=== PATIENT | female | born 1995 | race Caucasian/White ===

== ENCOUNTER 2020-05-03 04:53 | Emergency (ER) | payer OTHER, SELFPAY ==
[2020-05-03 05:13] VITALS: BP 124/78; PULSE 60; RESP 18; TEMP 36.5; O2SAT 98; BMI 20.2
[2020-05-03 05:29] LABS: Basophils Percent Auto 0.4 % (0-2); Eosinophils Absolute Auto 0.1 X10*3/uL (0.0-0.4); Eosinophils Percent Auto 2.4 % (0-4); Hemoglobin 12.8 g/dl (12.0-16.0); Imm Gran Abs Auto 0.01 X10*3/uL (0.00-0.03); Imm Gran Pct Auto 0.2 % (0.0-0.4); Lymphocytes Absolute Auto 1.8 X10*3/uL (1.2-4.9); Lymphocytes Percent Auto 33.4 % (20-40); MANUAL DIFF FLAG NO; Mean Corpuscular HGB Conc 33.7 g/dl (31.0-35.0); Mean Corpuscular Hemoglobin 29.9 pg (27.0-33.0); Mean Corpuscular Volume 88.8 fL (80-98); Mean Platelet Volume 9.7 fL (9.4-12.3); Monocytes Absolute Auto 0.5 X10*3/uL (0.1-1.2); Monocytes Percent Auto 8.9 % (2-11); Neutrophils Percent Auto 54.7 % (45-73); Platelet Count 236 X10*3/uL (160-400); Red Blood Count 4.28 X10*6/uL (4.20-5.50); Red Cell Distribution Width 12.6 % (11.0-16.0); White Blood Count 5.4 X10*3/uL (4.8-10.8)
[2020-05-03] MEDS: ondansetron HCL 4 MG/2 ML VIAL IVPUSH (05:29)
--- NOTE | 2020-05-03 05:32 | ED.ABDPAIN ---
HPI - Abdominal Pain General Chief Complaint: Abdominal Pain Stated Complaint: vomiting Time Seen by Provider: 05/03/20 05:11 Source: patient Mode of arrival: ambulatory Limitations: no limitations History of Present Illness HPI narrative: This is a 24-year-old female without significant past medical history who presents with acute onset of abdominal pain epigastric down into the right lower quadrant associated with 4 episodes of nausea and nonbilious /nonbloody vomiting as well as is single episode of diarrhea but denies any urinary pain /burning /frequency, fevers, chills. LMP is unknown as patient has irregular periods but she states it is unlikely that she is . Related Data Previous Rx's Medication Instructions Recorded ketorolac 10 mg PO Q6H PRN 5 Days #20 tab 05/03/20 Allergies Allergy/AdvReac Type Severity Reaction Status Date / Time lorazepam [LORAZEPAM] Allergy Unknown UNK Verified 05/03/20 07:16 peanut [PEANUT] Allergy Unknown SWEELING Verified 05/03/20 07:16 OF THROAT/RASH Review of Systems Review of Systems Pertinent positives and negatives as stated in HPI 10 point review of systems is otherwise negative. Physical Exam Vital Signs: Vital Signs: Last Vital Signs Temp 98.1 F 05/03/20 07:19 Pulse 61 05/03/20 07:19 Resp 16 05/03/20 07:22 BP 106/67 05/03/20 07:19 Pulse Ox 99 05/03/20 07:19 Body Mass Index 20.2 VITAL SIGNS: Reviewed. GENERAL: Well developed, well nourished, in no acute distress. HEAD: Normocephalic/atraumatic, EYES: PERRLA, EOMI intact without pain, no nystagmus/pallor/icterus noted EARS: Ext canals without abnormality, TMs non-bulging and non-erythematous NOSE: Nares patent bilateral OROPHARYNX: no oral lesions noted, posterior pharynx clear and non-erythematous without noted tonsillar enlargement/erythema/exudates NECK: Supple, no adenopathy LUNGS: Normal breath sounds. No adventitious sounds or accessory muscle use. SpO2<98> CARDIOVASCULAR: Regular rate and rhythm without noted murmurs, no JVD or lower extremity edema. ABDOMEN: Soft, Tenderness in the right lower quadrant greater than epigastric region, non-distended with bowel sounds. No rigidity. No guarding. No palpable masses or hernias noted MUSCULOSKELETAL: No tenderness, deformities, or effusions noted on gross inspection. EXTREMITIES: No cyanosis, clubbing or edema. SKIN: Inspection of the skin reveals no rashes, ulcerations, jaundice, pallor, or petechiae. NEUROLOGIC: Alert and oriented x 4. Strength and sensation to light touch were grossly intact x 4. Course Course Course Narrative: This is a 24-year-old female with history and clinical presentation most suggestive of possible appendicitis, ectopic , less likely ovarian cyst or cholecystitis. On review of all investigations there are no acute findings except CT scan is showing trace pelvic free fluid and thought to be ovarian cyst rupture. On re-evaluation patient has good pain control and will be discharged home in stable condition with a pain medication regimen and instructions to follow-up with her primary care provider. MDM - Abdominal Pain Lab Data Result diagrams: 05/03/20 05:25 05/03/20 05:25 Labs: Lab Results 05/03/20 05/03/20 05/03/20 Range/Units 05:25 05:25 05:45 WBC 5.4 (4.8-10.8) X10*3/uL RBC 4.28 (4.20-5.50) X10*6/uL Hgb 12.8 (12.0-16.0) g/dl Hct 38.0 (37-47) % MCV 88.8 (80-98) fL MCH 29.9 (27.0-33.0) pg MCHC 33.7 (31.0-35.0) g/dl RDW 12.6 (11.0-16.0) % Plt Count 236 (160-400) X10*3/uL MPV 9.7 (9.4-12.3) fL Immature Gran % (Auto) 0.2 (0.0-0.4) % Neut % (Auto) 54.7 (45-73) % Lymph % (Auto) 33.4 (20-40) % [place] % (Auto) 8.9 (2-11) % Eos % (Auto) 2.4 (0-4) % Baso % (Auto) 0.4 (0-2) % Lymph # (Auto) 1.8 (1.2-4.9) X10*3/uL [place] # (Auto) 0.5 (0.1-1.2) X10*3/uL Eos # (Auto) 0.1 (0.0-0.4) X10*3/uL Baso # (Auto) 0.0 (0.0-0.2) X10*3/uL Abs Immat Gran (auto) 0.01 (0.00-0.03) X10*3/uL Absolute Neuts (auto) 3.0 (2.0-8.3) X10*3/uL Absolute Nucleated RBC 0.000 (0.0-0.012) X10*3/uL Nucleated RBC % (auto) 0.0 (0.0-0.2) /100WBC Sodium 138 (135-145) mmol/L Potassium 3.9 (3.3-5.1) mmol/l Chloride 105 (96-108) mmol/L Carbon Dioxide 25 (22-29) mmol/L Anion Gap 12 (12-20) BUN 12 (9-16) mg/dL Creatinine 0.78 (0.5-1.4) mg/dL Estim Creat Clear Calc 88.7 Estimated GFR > 60 Random Glucose 106 (60-115) mg/dL Calcium 8.9 (8.4-10.2) mg/dL Total Bilirubin 0.6 (0.0-1.0) mg/dL AST 17 (5-31) U/L ALT 17 (0-31) U/L Alkaline Phosphatase 65 (39-117) U/L Total Protein 7.3 (6.5-8.0) g/dL Albumin 4.6 (3.5-5.0) g/dL Beta HCG, Quant < 2 mIU/mL Coronavirus (PCR) NEGATIVE (Negative) Influenza Type A (PCR) NEGATIVE (Negative) Influenza Type B (PCR) NEGATIVE (Negative) RSV RNA Qual (PCR) NEGATIVE (Negative) Discharge Plan Discharge Clinical Impression: Ovarian cyst rupture Patient Disposition: Home, Self-Care Instructions: Ruptured Ovarian Cyst (ED) Additional Instructions: 1. Tylenol 1000 mg, orally, every 6 hours as needed for pain control. Do not exceed 4000 mg within 24 hours. 2. Increase fluid hydration especially with water. 3. follow-up with your primary care provider by calling office this morning and sitting up an appointment for re-evaluation. The patient and/or family acknowledge understanding of results (as applicable), diagnosis, treatment plan, need for follow up, and symptoms that should prompt a return to the emergency room. Prescriptions: New ketorolac 10 mg tablet 10 mg PO Q6H PRN (Reason: pain) 5 Days Qty: 20 RF: 0 Referrals: Physician,Unknown [Primary Care Provider] - 2 days ( re-evaluation for ruptured ovarian cyst) Stand Alone Forms: Work/School Release [facility] Past Medical History Source: nursing notes reviewed Social History Social History Alcohol intake: never Smoking Status: Light tobacco smoker Use of substances other than those prescribed or required for medical reasons: No Advance Directives: No
[2020-05-03] MEDS: 0.9 % Sodium Chloride 1,000 ML 999 ML IV (05:38)
[2020-05-03] MEDS: Ketorolac Tromethamine 15 MG/ML VIAL IVPUSH (05:38)
[2020-05-03 05:52] LABS: Alanine Aminotransferase 17 U/L (0-31); Albumin Level 4.6 g/dL (3.5-5.0); Alkaline Phosphatase 65 U/L (39-117); Anion Gap 12 (12-20); Aspartate Amino Transferase 17 U/L (5-31); Bilirubin Total 0.6 mg/dL (0.0-1.0); Blood Urea Nitrogen 12 mg/dL (9-16); Calcium 8.9 mg/dL (8.4-10.2); Carbon Dioxide 25 mmol/L (22-29); Chloride 105 mmol/L (96-108); Creatinine Clr Calc Pharmacy 88.7; Estimated Glomerular Filt Rate > 60; Glucose Random 106 mg/dL (60-115); Potassium 3.9 mmol/l (3.3-5.1); Sodium 138 mmol/L (135-145); Total Protein 7.3 g/dL (6.5-8.0)
--- NOTE | 2020-05-03 05:56 | CT_ITS ---
EXAMINATION: CT ABDOMEN AND PELVIS WITH CONTRAST CLINICAL INFORMATION: Right lower quadrant pain COMPARISON: None TECHNIQUE: Multidetector volumetric images were obtained from the superior aspect of the liver through the pubic symphysis following administration 85 mL of Omnipaque 350 intravenous contrast. Sagittal and coronal reformatted images were obtained on the technologist's workstation. Oral contrast: No This CT examination was performed using dose optimization techniques as appropriate, variously including the following: *Automated exposure control *Adjustment of mA and/or kV according to patient size (this includes techniques or standardized protocols for targeted exams where dose is matched to indication/reason for exam; i.e. extremities or head) *Use of iterative reconstruction technique DLP: 312 mGy-cm FINDINGS: LUNG BASES: The visualized lung bases are unremarkable. LIVER, GALLBLADDER, AND BILIARY TREE: The liver is normal in size, shape, and attenuation. Periportal edema is noted. No focal hepatic lesion or biliary ductal dilatation is present. Gallbladder appears unremarkable. PANCREAS: Unremarkable. SPLEEN: Unremarkable. ADRENAL GLANDS: Unremarkable. KIDNEYS AND URETERS: The kidneys are normal in size, shape, and attenuation. No hydronephrosis, hydroureter, or obstructing calculi seen. No perinephric stranding. BLADDER: Unremarkable. GASTROINTESTINAL TRACT: The small and large bowel are unremarkable. The appendix is unremarkable. No free air is seen. ABDOMINAL WALL: No significant hernia is appreciated. LYMPH NODES: Normal. VASCULAR: Unremarkable. PELVIC VISCERA: A peripherally enhancing hypodense lesion in the right adnexa measuring approximately 2 cm is most suggestive of a corpus luteal cyst. Trace pelvic free fluid is present. OSSEOUS STRUCTURES: Unremarkable. CT/CT abdomen pelvis w con IMPRESSION: 1. Trace pelvic free fluid. This could be physiologic or secondary to ovarian cyst rupture, as there is a suspected right corpus luteal cyst. 2. Periportal edema, which could be related to patient's hydration status. 3. Normal appendix.
[2020-05-03 05:58] LABS: HCG Quantitative < 2 mIU/mL
[2020-05-03] MEDS: iohexoL 350 MG/ML 100 ML INFUS..BTL 85 ML IV (06:26)
[2020-05-03 06:28] VITALS: BP 103/64; PULSE 77; RESP 18; TEMP 36.7; O2SAT 100
[2020-05-03 06:28] LABS: Influenza A PCR NEGATIVE (Negative); Influenza B PCR NEGATIVE (Negative); Resp Syncy Virus RNA Qual PCR NEGATIVE (Negative); SARS COV2 PCR INHOUSE NEGATIVE (Negative)
[2020-05-03 07:19] VITALS: BP 106/67; PULSE 61; RESP 16; TEMP 36.7; O2SAT 99
[2020-05-03 07:22] VITALS: RESP 16
[2020-05-03] MEDS: fentaNYL citrate/PF 100 MCG/2 ML VIAL 25 MCG IVPUSH (07:22)
[2020-05-03 08:00] LABS: Glucose Urine UA NEG (NEG); Leukocyte Esterase Urine NEG (NEG); Nitrite Urine NEG (NEG); Specific Gravity - Urine <= 1.005 (1.005-1.025); Urine Blood NEG (NEG); Urine Ketones NEG (NEG); Urine Protein NEG (NEG-TRACE)
[2020-05-03 08:03] LABS: Appearance Urine CLEAR; Color Urine YELLOW; UPreg QC Valid YES; Urine Pregnancy NEGATIVE (NEGATIVE)
[2020-05-03 08:10] VITALS: BP 113/75; PULSE 52; RESP 16; O2SAT 100
== END 2020-05-03 08:15 | disposition home or self-care (01) ==
PROVIDERS: Emergency Provider Student in an Organized Health Care Education/Training Program
DX: N83.201 Unspecified ovarian cyst, right side (principal); Z20.828 Contact with and (suspected) exposure to other viral communicable diseases
CPT/HCPCS: 0241U; 36415; 74177; 80053; 81003; 81025; 84702; 85025; 96361; 96374; 96375; 99284; J1885; J2405; J3010; Q9967

== ENCOUNTER 2020-05-03 17:14 | Emergency (ER) | payer OTHER, SELFPAY ==
[2020-05-03 17:37] VITALS: BP 102/69; PULSE 70; RESP 16; TEMP 36.8; O2SAT 98; BMI 20.1
[2020-05-03 19:57] VITALS: BP 141/87; PULSE 79; RESP 17; O2SAT 99
[2020-05-03 20:19] LABS: MANUAL DIFF FLAG NO
[2020-05-03 20:24] LABS: Basophils Percent Auto 0.3 % (0-2); Eosinophils Percent Auto 0.4 % (0-4); Hematocrit 36.7 % (37-47); Hemoglobin 12.2 g/dl (12.0-16.0); Imm Gran Abs Auto 0.03 X10*3/uL (0.00-0.03); Imm Gran Pct Auto 0.3 % (0.0-0.4); Lymphocytes Absolute Auto 2.1 X10*3/uL (1.2-4.9); Lymphocytes Percent Auto 23.9 % (20-40); Mean Corpuscular HGB Conc 33.2 g/dl (31.0-35.0); Mean Corpuscular Hemoglobin 29.8 pg (27.0-33.0); Mean Corpuscular Volume 89.7 fL (80-98); Monocytes Absolute Auto 0.5 X10*3/uL (0.1-1.2); Monocytes Percent Auto 5.7 % (2-11); Neutrophils Absolute Auto 6.2 X10*3/uL (2.0-8.3); Neutrophils Percent Auto 69.4 % (45-73); Platelet Count 260 X10*3/uL (160-400); Red Blood Count 4.09 X10*6/uL (4.20-5.50); Red Cell Distribution Width 12.4 % (11.0-16.0)
[2020-05-03 20:46] LABS: Alanine Aminotransferase 15 U/L (0-31); Albumin Level 4.5 g/dL (3.5-5.0); Alkaline Phosphatase 64 U/L (39-117); Anion Gap 15 (12-20); Aspartate Amino Transferase 15 U/L (5-31); Bilirubin Total 0.8 mg/dL (0.0-1.0); Blood Urea Nitrogen 11 mg/dL (9-16); Calcium 8.9 mg/dL (8.4-10.2); Carbon Dioxide 23 mmol/L (22-29); Chloride 108 mmol/L (96-108); Creatinine Clr Calc Pharmacy 101.3; Estimated Glomerular Filt Rate > 60; Glucose Random 82 mg/dL (60-115); Potassium 3.8 mmol/l (3.3-5.1); Sodium 142 mmol/L (135-145); Total Protein 6.9 g/dL (6.5-8.0)
--- NOTE | 2020-05-03 20:57 | ED.ABDPAIN ---
HPI - Abdominal Pain General Chief Complaint: Abdominal Pain Stated Complaint: pelvic pain Time Seen by Provider: 05/03/20 19:56 Source: patient Mode of arrival: ambulatory Limitations: no limitations History of Present Illness HPI narrative: Patient is a 24-year-old female with no significant past medical history who was seen in this emergency room very early this morning for abdominal pain, abdominal CT scan revealed a ruptured ovarian cyst. Patient was sent home with pain medication but returns tonight because she is nauseous and has been vomiting all day. Patient describes her vomitus is a brown liquid. Denies any blood in her vomitus, denies fevers. States pain is on the upper abdomen and the right side of her abdomen. Related Data Previous Rx's Medication Instructions Recorded ketorolac 10 mg PO Q6H PRN 5 Days #20 tab 05/03/20 Allergies Allergy/AdvReac Type Severity Reaction Status Date / Time lorazepam [LORAZEPAM] Allergy Unknown UNK Verified 05/03/20 07:16 peanut [PEANUT] Allergy Unknown SWEELING Verified 05/03/20 07:16 OF THROAT/RASH Review of Systems Review of Systems see HPI Physical Exam Vital Signs: Vital Signs: Last Vital Signs Temp 98.5 F 05/03/20 22:16 Pulse 65 05/03/20 22:16 Resp 18 05/03/20 22:16 BP 108/49 L 05/03/20 22:16 Pulse Ox 98 05/03/20 22:16 Body Mass Index 20.1 Const: General: cooperative, no acute distress and in distress (pt tearful she states due to abdominal pain) mild Nutritional Appearance: thin Orientation/consciousness: patient oriented x3 Limitations: no limitations HENMT: Head: Yes normal to inspection, Yes normocephalic and Yes atraumatic Ears: hearing grossly normal bilaterally General nose exam: Normal external nose present Face and sinus: Yes normal facial exam Mouth: Normal oral and palatal mucosa present Eyes: General: appearance normal, both eyes and all related structures Pupils: Equal, round and reactive pupils present Neck: Neck: Yes normal visual inspection, Yes full ROM and Yes supple Resp: Effort & Inspection: normal respiratory effort and able to speak in complete sentences Auscultation: clear to auscultation bilaterally, no crackles, no rales, no rhonchi and no wheezes Cardio: Rate: regular rate Rhythm: regular rhythm Heart sounds: normal S1 and S2 GI: Inspection: Yes normal to inspection Palpation (GI): Soft to palpation and Tenderness to palpation present (GI) in the epigastrum, in the RLQ and suprapubicly; Santacruz's sign negative Auscultation: normal bowel sounds Skin: General skin exam: no rashes or lesions noted Neuro: General: patient oriented x3 Cranial nerves: Yes Equal, round and reactive pupils present Course Course Course Narrative: Patient is a 24-year-old female with no significant past medical history who was evaluated in this emergency department very early this morning was found to have a ruptured ovarian cyst and sent home with pain medication. Patient has returned to the emergency department this evening stating her pain has worsened and she is now nauseous and vomiting brown liquid. Will repeat labs, give a GI cocktail and get a pelvic ultrasound then reassess. 9:30pm patient's labs are WNL and virtually unchanged from this morning. Spoke with the physician who evaluated the patient this morning, Dr Jones, she agreed with plan for GI cocktail, pelvic US and doppler to r/o torsion and possibly repeat CT with PO contrast. 11pm patient states she is feeling better, still a little bit of pain. Will give Toradol IV. Will PO challenge. 12am patient states she is feeling better, can tolerate p.o., will discharge home. MDM - Abdominal Pain Lab Data Result diagrams: 05/03/20 20:10 05/03/20 20:10 Labs: Lab Results 05/03/20 05/03/20 05/03/20 Range/Units 20:10 20:10 20:10 WBC 9.0 (4.8-10.8) X10*3/uL RBC 4.09 L (4.20-5.50) X10*6/uL Hgb 12.2 (12.0-16.0) g/dl Hct 36.7 L (37-47) % MCV 89.7 (80-98) fL MCH 29.8 (27.0-33.0) pg MCHC 33.2 (31.0-35.0) g/dl RDW 12.4 (11.0-16.0) % Plt Count 260 (160-400) X10*3/uL MPV 10.0 (9.4-12.3) fL Immature Gran % (Auto) 0.3 (0.0-0.4) % Neut % (Auto) 69.4 (45-73) % Lymph % (Auto) 23.9 (20-40) % [place] % (Auto) 5.7 (2-11) % Eos % (Auto) 0.4 (0-4) % Baso % (Auto) 0.3 (0-2) % Lymph # (Auto) 2.1 (1.2-4.9) X10*3/uL [place] # (Auto) 0.5 (0.1-1.2) X10*3/uL Eos # (Auto) 0.0 (0.0-0.4) X10*3/uL Baso # (Auto) 0.0 (0.0-0.2) X10*3/uL Abs Immat Gran (auto) 0.03 (0.00-0.03) X10*3/uL Absolute Neuts (auto) 6.2 (2.0-8.3) X10*3/uL Absolute Nucleated RBC 0.000 (0.0-0.012) X10*3/uL Nucleated RBC % (auto) 0.0 (0.0-0.2) /100WBC Hold Blue Top SEE NOTE Sodium 142 (135-145) mmol/L Potassium 3.8 (3.3-5.1) mmol/l Chloride 108 (96-108) mmol/L Carbon Dioxide 23 (22-29) mmol/L Anion Gap 15 (12-20) BUN 11 (9-16) mg/dL Creatinine 0.68 (0.5-1.4) mg/dL Estim Creat Clear Calc 101.3 Estimated GFR > 60 Random Glucose 82 (60-115) mg/dL Calcium 8.9 (8.4-10.2) mg/dL Magnesium 1.9 (1.6-2.6) mg/dL Total Bilirubin 0.8 (0.0-1.0) mg/dL Direct Bilirubin 0.3 (0.0-0.5) mg/dL AST 15 (5-31) U/L ALT 15 (0-31) U/L Alkaline Phosphatase 64 (39-117) U/L Total Protein 6.9 (6.5-8.0) g/dL Albumin 4.5 (3.5-5.0) g/dL Lipase 40 (8-78) U/L Imaging Data US pelvis: Attestation: I personally reviewed and interpreted this imaging study as follows: Radiologist's impression: Patient: Sarah PatelMR#: [id number] : 1995Acct:[id number] Age/Sex: 24 / FADM Date: 05/03/20 Loc: HO.ED Attending Dr: Ordering Physician: JAMES GARCIA Date of Service: 05/03/20 Procedure(s): US pelvic complete Accession Number(s): [id number] cc: JAMES GARCIA~ EXAMINATION: US PELVIS CLINICAL INFORMATION: Pelvic pain. COMPARISON: CT from today. TECHNIQUE: Ultrasound of the pelvis is performed using transabdominal transducers along with Doppler. Transvaginal imaging is not performed due to patient request. FINDINGS: Uterus: The uterus is anteverted and measures 7.4 x 2.9 x 4 cm. The double wall endometrial thickness is 0.8 mm. The uterus is smooth in contour and has normal myometrial echogenicity. No visible fibroid. Adnexa: Both ovaries are visualized. There is normal color flow to the adnexa. There is no ovarian torsion. There is no pelvic ascites or fluid collection. Corpus luteal cyst on the right measuring 1.2 cm. Right ovary measures 3.3 x 3.1 x 2.1 cm. Left ovary measures 2.9 x 3.1 x 1.8 cm. Normal arterial and venous spectral waveforms bilaterally. Small amount of free fluid in the pelvis. US/US pelvic complete IMPRESSION: No evidence of active ovarian torsion at this time. No suspicious ovarian lesion. Small amount of pelvic free fluid may be physiologic. Discharge Plan Discharge Prescriptions: No Action ketorolac 10 mg tablet 10 mg PO Q6H PRN (Reason: pain) 5 Days Qty: 20 RF: 0 PMFSH Social History Social History Alcohol intake: current Alcohol intake frequency: a few times a week Alcohol type: wine Smoking Status: Current some day smoker Smoked in Last 30 Days: No Use of substances other than those prescribed or required for medical reasons: No Advance Directives: No Advance Directives Information Provided: Yes
[2020-05-03] MEDS: ondansetron HCL 4 MG/2 ML VIAL IVPUSH (20:58)
--- NOTE | 2020-05-03 21:01 | PC.NURSE ---
Po meds held for n/v. primary rn aware
[2020-05-03 21:24] LABS: Bilirubin Direct 0.3 mg/dL (0.0-0.5); Lipase 40 U/L (8-78); Magnesium 1.9 mg/dL (1.6-2.6)
[2020-05-03] MEDS: Magnesium Hydrox/Alum Hydrox 30 ML ORAL.SUSP PO (21:53)
[2020-05-03] MEDS: Lidocaine HCl Viscous 2 % 15 ML SOLUTION 10 ML MUCOUS MEM (21:54)
[2020-05-03 22:16] VITALS: BP 108/49; PULSE 65; RESP 18; TEMP 36.9; O2SAT 98
[2020-05-03] MEDS: Ketorolac Tromethamine 15 MG/ML VIAL IV (23:41)
[2020-05-04] VITALS: PULSE 60; RESP 16; TEMP 36.7
== END 2020-05-04 00:54 | disposition home or self-care (01) ==
PROVIDERS: Physician Assistant; Emergency Provider Internal Medicine
DX: R10.2 Pelvic and perineal pain (principal); R11.10 Vomiting, unspecified; F17.200 Nicotine dependence, unspecified, uncomplicated
CPT/HCPCS: 36415; 76856; 80053; 80076; 82248; 83690; 83735; 85025; 93975; 96374; 96375; 99284; J1885; J2405

== ENCOUNTER 2021-08-03 23:35 | Emergency (ER) | payer OTHER, SELFPAY ==
--- NOTE | ~2021-08-03 | CT_ITS ---
EXAMINATION: NONCONTRAST HEAD CT NONCONTRAST FACIAL BONES CT NONCONTRAST CERVICAL SPINE CT INDICATION INFORMATION: Fall, injury COMPARISON: None TECHNIQUE: Separate noncontrast CT examinations of the head, maxillofacial bones, and cervical spine were performed. Coronal and sagittal images were created for each examination at the technologist workstation. DOSE LOWERING TECHNIQUES: This CT examination was performed using dose optimization techniques as appropriate, variously including the following: - Automated exposure control - Adjustment of mA and/or kV according to patient size (this includes techniques or standardized protocols for targeted exams were dose is matched to indication/reason for exam; i.e. extremities or head) - Use of iterative reconstruction technique DLP: 1108 mGy-cm FINDINGS: Head: There is no evidence of acute intracranial hemorrhage or territorial infarction. No abnormal mass-effect or midline shift is seen. Perez to white matter differentiation is well preserved. No extra-axial fluid collections are identified. The ventricles are normal in size. There is no abnormal attenuation within the brain parenchyma. The osseous structures and soft tissues are normal. The mastoid air cells are well aerated. Facial bones: No acute maxillofacial fractures are seen. There is slight mucosal thickening of the maxillary sinuses inferiorly. Remaining paranasal sinuses are well-aerated. There is some mucosal thickening along the bilateral infundibula. The mandibular condyles are well-seated in the condylar fossa. The orbits demonstrate a normal appearance bilaterally. The globes are intact, and there are no suspicious findings to suggest retrobulbar hemorrhage. Cervical spine: There is anatomic alignment of the vertebral bodies and posterior elements. Vertebral body heights are maintained. Intervertebral disc spaces are preserved. 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 No evidence of acute fracture. No prevertebral soft tissue swelling. Visualized portions of the lung apices demonstrate subpleural scarring. The thyroid gland is unremarkable. CT/CT cervical spine wo con IMPRESSION: No acute traumatic findings identified in the head, facial bones, or cervical spine.
--- NOTE | 2021-08-03 23:46 | PC.NURSE ---
POC was 74.
[2021-08-03 23:47] LABS: Glucose, Whole Blood 74 mg/dL (60-115)
[2021-08-03 23:50] LABS: Basophils Percent Auto 0.4 % (0-2); Eosinophils Absolute Auto 0.2 X10*3/uL (0.0-0.4); Eosinophils Percent Auto 1.9 % (0-4); Hematocrit 35.5 % (37.0-47.0); Hemoglobin 11.9 g/dl (12.0-16.0); Imm Gran Abs Auto 0.01 X10*3/uL (0.00-0.03); Imm Gran Pct Auto 0.1 % (0.0-0.4); Lymphocytes Absolute Auto 5.2 X10*3/uL (1.2-4.9); Lymphocytes Percent Auto 58.4 % (20-40); Mean Corpuscular HGB Conc 33.5 g/dl (31.0-35.0); Mean Corpuscular Hemoglobin 30.3 pg (27.0-33.0); Mean Corpuscular Volume 90.3 fL (80.0-98.0); Mean Platelet Volume 10.2 fL (9.4-12.3); Monocytes Absolute Auto 0.8 X10*3/uL (0.1-1.2); Monocytes Percent Auto 8.8 % (2-11); Neutrophils Absolute Auto 2.7 x10*3/uL (2.0-8.3); Neutrophils Percent Auto 30.4 % (45-73); Platelet Count 269 X10*3/uL (160-400); Red Blood Count 3.93 X10*6/uL (4.20-5.50); Red Cell Distribution Width 12.2 % (11.0-16.0); SCAN SMEAR FLAG 1
[2021-08-03] MEDS: LORazepam 2 MG/ML VIAL 1 MG IVPUSH (23:51)
[2021-08-03] MEDS: 0.9 % Sodium Chloride 1,000 ML 999 ML IV (23:51)
--- NOTE | 2021-08-03 23:51 | ED_ITS ---
HPI - Altered Mental Status General Chief Complaint: Syncope Stated Complaint: Syncope Time Seen by Provider: 08/03/21 23:41 Source: other (Friend, tree 7) Mode of arrival: ambulatory Limitations: altered mental status History of Present Illness HPI narrative: 26-year-old female who is brought to emergency department by a friend for evaluation of altered mental status, fall with head injury. According to the friend, they were smoking marijuana all day. They went to a bar and drank alcohol. Day relieving the bar and the patient missed the last step fell forward and landed on her chin. She had no loss of consciousness but was altered after the fall. The friend then brought her to the emergency department for evaluation. At triage the patient appeared to be altered and passed out. She was brought immediately to an ER bed and I evaluated her. She is shaking, she is hyperventilating, she does have an obvious laceration to her chin. She does answer questions slowly but answers them appropriately. Related Data Previous Rx's Medication Instructions Recorded ketorolac 10 mg tablet 10 mg PO Q6H PRN 5 Days #20 tab 05/03/20 Allergies Allergy/AdvReac Type Severity Reaction Status Date / Time lorazepam [LORAZEPAM] Allergy Unknown UNK Verified 05/28/21 11:26 peanut [PEANUT] Allergy Unknown SWEELING Verified 05/28/21 11:26 OF THROAT/RASH Review of Systems Review of Systems: Yes all other systems are reviewed and are negative [facility] Social History Social History Alcohol intake: current Alcohol intake frequency: a few times a week Alcohol type: wine Advance Directives: No Advance Directives Information Provided: No Physical Exam ED Vital Signs: Vital Signs - 24 hr 08/03/21 23:54 08/04/21 00:20 Temperature 98.0 F Pulse Rate 105 H 108 H Respiratory Rate 16 18 Blood Pressure 120/67 112/69 Pulse Oximetry 99 100 BMI result Body Mass Index 18.8 Const Other: Somnolent but arousable, the patient is shaking, the patient does answer questions slowly but appropriately, she appears to be hyperventilating. HENMT Other: Tenderness with palpation of the mandible bilaterally, tenderness palpation over the chin Head: Yes normal to inspection, Yes normocephalic and Yes atraumatic Ears: external ears normal General nose exam: Normal external nose present Face and sinus: Yes other (2.5 cm full skin laceration over the chin) Mouth: Normal oral and palatal mucosa present Throat: Yes posterior oropharynx normal Eyes General: appearance normal, both eyes and all related structures Neck Neck: Yes normal visual inspection, Yes no lymphadenopathy, Yes trachea midline and Yes supple Chest Chest palpation & inspection: normal inspection of the chest and normal palpation of entire chest wall Resp Effort & Inspection: normal respiratory effort and able to speak in complete sentences Auscultation: clear to auscultation bilaterally Cardio Rate: regular rate Rhythm: regular rhythm Heart sounds: S1 normal heart sound present, S2 normal heart sound present and no murmurs GI Inspection: Yes normal to inspection Palpation (GI): Soft to palpation, nontender and no guarding Auscultation: normal bowel sounds General: Yes no CVA tenderness Back/Spine/Pelvis Back: no CVA tenderness Skin General skin exam: no rashes or lesions noted Neuro Other: The patient is somnolent but arousable, she is shaking uncontrollably, she does answer questions slowly but appropriately, her pupils were 5 mm and reactive, extraocular muscles were intact, cranial nerves are intact, strength is symmetric bilaterally Extrem General: Yes normal to inspection Psych Appearance: grossly normal Speech and movement: Other speech and movement exam findings present (Psych) (Slow but appropriate) Course Course Course Narrative: 26-year-old female brought to emergency department by her friend for evaluation of altered mental status. The patient has been smoking marijuana all day was drinking. When she was walking out of a bar she missed the last step, fell for and struck her chin on the ground. The friend states that she had no loss of consciousness but since the fall she has been altered. On presentation the patient's pupils are 5 mm, she is answering questions slowly, she appears to be anxious and hyperventilating. The patient does have a chin laceration with tenderness with palpation of her mandible otherwise her exam is unremarkable. The patient was ordered to get Ativan 1 mg IV and normal saline x1 L. Laboratory evaluation was ordered. The patient was also ordered to get a CT scan of the head, neck and maxillofacial bones. MDM - Altered Mental Status Lab Data Result diagrams: 08/03/21 23:46 08/03/21 23:46 Labs: Lab Results 08/03/21 08/03/21 08/03/21 Range/Units 23:42 23:46 23:46 WBC 9.0 (4.8-10.8) X10*3/uL RBC 3.93 L (4.20-5.50) X10*6/uL Hgb 11.9 L (12.0-16.0) g/dl Hct 35.5 L (37.0-47.0) % MCV 90.3 (80.0-98.0) fL MCH 30.3 (27.0-33.0) pg MCHC 33.5 (31.0-35.0) g/dl RDW 12.2 (11.0-16.0) % Plt Count 269 (160-400) X10*3/uL MPV 10.2 (9.4-12.3) fL Immature Gran % (Auto) 0.1 (0.0-0.4) % Neut % (Auto) 30.4 L (45-73) % Lymph % (Auto) 58.4 H (20-40) % [place] % (Auto) 8.8 (2-11) % Eos % (Auto) 1.9 (0-4) % Baso % (Auto) 0.4 (0-2) % Lymph # (Auto) 5.2 H (1.2-4.9) X10*3/uL [place] # (Auto) 0.8 (0.1-1.2) X10*3/uL Eos # (Auto) 0.2 (0.0-0.4) X10*3/uL Baso # (Auto) 0.0 (0.0-0.2) X10*3/uL Abs Immat Gran (auto) 0.01 (0.00-0.03) X10*3/uL Absolute Neuts (auto) 2.7 (2.0-8.3) x10*3/uL Absolute Nucleated RBC 0.000 (0.0-0.012) X10*3/uL Nucleated RBC % (auto) 0.0 (0.0-0.2) /100WBC Smear Tech's Comments VERIFIED Sodium 140 (135-145) mmol/L Potassium 3.6 (3.3-5.1) mmol/L Chloride 103 (96-108) mmol/L Carbon Dioxide 27 (22-29) mmol/L Anion Gap 14 (12-20) BUN 15 (9-16) mg/dL Creatinine 0.82 (0.5-1.4) mg/dL Estim Creat Clear Calc 75.1 Estimated GFR > 60 POC Glucose 74 (60-115) mg/dL Random Glucose 84 (60-115) mg/dL Calcium 9.9 D (8.4-10.2) mg/dL Total Bilirubin 0.3 (0.0-1.0) mg/dL AST 15 (5-31) U/L ALT 13 (0-31) U/L Alkaline Phosphatase 87 D (39-117) U/L Total Protein 7.4 (6.5-8.0) g/dL Albumin 4.7 (3.5-5.0) g/dL Lipase 20 (8-78) U/L Ethyl Alcohol mg/dL 08/03/21 Range/Units 23:46 WBC (4.8-10.8) X10*3/uL RBC (4.20-5.50) X10*6/uL Hgb (12.0-16.0) g/dl Hct (37.0-47.0) % MCV (80.0-98.0) fL MCH (27.0-33.0) pg MCHC (31.0-35.0) g/dl RDW (11.0-16.0) % Plt Count (160-400) X10*3/uL MPV (9.4-12.3) fL Immature Gran % (Auto) (0.0-0.4) % Neut % (Auto) (45-73) % Lymph % (Auto) (20-40) % [place] % (Auto) (2-11) % Eos % (Auto) (0-4) % Baso % (Auto) (0-2) % Lymph # (Auto) (1.2-4.9) X10*3/uL [place] # (Auto) (0.1-1.2) X10*3/uL Eos # (Auto) (0.0-0.4) X10*3/uL Baso # (Auto) (0.0-0.2) X10*3/uL Abs Immat Gran (auto) (0.00-0.03) X10*3/uL Absolute Neuts (auto) (2.0-8.3) x10*3/uL Absolute Nucleated RBC (0.0-0.012) X10*3/uL Nucleated RBC % (auto) (0.0-0.2) /100WBC Smear Tech's Comments Sodium (135-145) mmol/L Potassium (3.3-5.1) mmol/L Chloride (96-108) mmol/L Carbon Dioxide (22-29) mmol/L Anion Gap (12-20) BUN (9-16) mg/dL Creatinine (0.5-1.4) mg/dL Estim Creat Clear Calc Estimated GFR POC Glucose (60-115) mg/dL Random Glucose (60-115) mg/dL Calcium (8.4-10.2) mg/dL Total Bilirubin (0.0-1.0) mg/dL AST (5-31) U/L ALT (0-31) U/L Alkaline Phosphatase (39-117) U/L Total Protein (6.5-8.0) g/dL Albumin (3.5-5.0) g/dL Lipase (8-78) U/L Ethyl Alcohol < 10 mg/dL Procedures Laceration 2.0 cm chin laceration: Site: other (Chin) Size (cm): 2.0 Description: linear Depth: involves muscle layer Local Anesthetic: lidocaine 1% Amount of anesthesia used (mL): 5.0 Pre-repair: wound explored Skin layer closed with: vicryl Size (cm): 5-0 Number of sutures: 6 Technique: simple, interrupted Muscle layer closed with: vicryl Size: 4-0 Number of sutures: 2 Technique: simple, interrupted Discharge Plan Discharge Clinical Impression: Acute alteration in mental status, Acute hyperventilation syndrome, Fall on stairs, Chin laceration, Marijuana use Patient Disposition: Home, Self-Care Instructions: Hyperventilation (ED), Laceration (DC), Head Injury (ED) Additional Instructions: Apply bacitracin twice a day for 7-10 days to the laceration/cut on your chin. You have 2 internal stitches that will dissolve. You have 6 external stitches that will need to be removed in 7 days by your doctor. Follow the laceration instructions. Follow the head injury instructions. Take ibuprofen 200 mg pills, 3 pills every 6 hours as needed for pain. Take Tylenol (acetaminophen) 500 mg pills, 2 pills every 4 to 6 hours as needed for pain. Follow-up with your doctor in 2 days. Please return to the emergency department if your symptoms get worse or if you develop any symptoms that are concerning to you. Prescriptions: No Action ketorolac 10 mg tablet 10 mg PO Q6H PRN (Reason: pain) 5 Days Qty: 20 0RF Rx Instructions: patient received IVP Toradol in the emergency department.
[2021-08-03 23:52] LABS: MANUAL DIFF FLAG SCAN
[2021-08-03 23:54] VITALS: BP 120/67; PULSE 105; RESP 16; O2SAT 99; BMI 18.8
--- NOTE | 2021-08-04 | ECG_ITS ---
Test Reason : syncope Blood Pressure : / mmHG Vent. Rate : 098 BPM Atrial Rate : 098 BPM P-R Int : 180 ms QRS Dur : 080 ms QT Int : 344 ms P-R-T Axes : 043 013 022 degrees QTc Int : 439 ms Normal sinus rhythm Normal ECG No previous ECGs available Referred By: Brandin Ruelas Electronically Signed By:MARTY MERCADO MD
[2021-08-04 00:08] LABS: Ethanol < 10 mg/dL
[2021-08-04 00:09] LABS: SLIDE REVIEW VERIFIED
[2021-08-04 00:10] LABS: Alanine Aminotransferase 13 U/L (0-31); Albumin Level 4.7 g/dL (3.5-5.0); Alkaline Phosphatase 87 U/L (39-117); Anion Gap 14 (12-20); Aspartate Amino Transferase 15 U/L (5-31); Bilirubin Total 0.3 mg/dL (0.0-1.0); Blood Urea Nitrogen 15 mg/dL (9-16); Calcium 9.9 mg/dL (8.4-10.2); Carbon Dioxide 27 mmol/L (22-29); Chloride 103 mmol/L (96-108); Creatinine Clr Calc Pharmacy 75.1; Estimated Glomerular Filt Rate > 60; Glucose Random 84 mg/dL (60-115); Lipase 20 U/L (8-78); Potassium 3.6 mmol/L (3.3-5.1); Sodium 140 mmol/L (135-145); Total Protein 7.4 g/dL (6.5-8.0)
[2021-08-04 00:20] VITALS: BP 112/69; PULSE 108; RESP 18; TEMP 36.7; O2SAT 100
[2021-08-04] MEDS: Lidocaine HCl 2 % 20 ML VIAL INFILTRATI (02:06)
[2021-08-04 02:14] LABS: UPreg QC Valid YES; Urine Pregnancy NEGATIVE (NEGATIVE)
[2021-08-04 02:27] LABS: Amphetamine Screen Urine Not Detected (Not Detect); Barbiturates, Urine Not Detected (Not Detect); Benzodiazepines Screen Urine Not Detected (Not Detect); Cannabinoid Screen Urine POSITIVE (Not Detect); Cocaine Screen Urine Not Detected (Not Detect); Fentanyl, urine Not Detected (Not Detect); Opiate Screen Urine Not Detected (Not Detect); Phencyclidine Screen Urine Not Detected (Not Detect)
[2021-08-04] MEDS: Acetaminophen 325 MG TABLET 650 MG PO (02:32)
[2021-08-04] MEDS: Bacitracin Oint 0.9 GM PACKET 1 APPL TOPICAL (02:32)
[2021-08-04] MEDS: Diphth,Pertus(ACell),Tet Adult 0.5 ML SYRINGE IM (02:32)
[2021-08-04] MEDS: Ibuprofen 600 MG TABLET PO (02:33)
== END 2021-08-04 02:40 | disposition home or self-care (01) ==
PROVIDERS: Emergency Provider Emergency Medicine Emergency Medical Services
DX: S01.81XA Laceration without foreign body of other part of head, initial encounter (principal); R55 Syncope and collapse; R06.4 Hyperventilation; M54.2 Cervicalgia; F12.90 Cannabis use, unspecified, uncomplicated; W10.9XXA Fall (on) (from) unspecified stairs and steps, initial encounter; Y93.9 Activity, unspecified; Y92.9 Unspecified place or not applicable; Y99.9 Unspecified external cause status; Z79.899 Other long term (current) drug therapy
CPT/HCPCS: 12011; 36415; 70450; 70486; 72125; 80053; 80307; 81025; 82077; 82947; 83690; 85025; 90471; 90715; 93005; 96360; 96361; 96372; 96374; 99285; J2060

== ENCOUNTER → 2022-11-14 13:41 | Outpatient (BNVA) | payer OTHER, SELFPAY | PROVIDERS: Visit Provider Nurse Practitioner Family | DX: R41.82 Altered mental status, unspecified (principal); G43.909 Migraine, unspecified, not intractable, without status migrainosus; R25.1 Tremor, unspecified; H53.2 Diplopia; Z91.81 History of falling | CPT/HCPCS: 99202 ==

== ENCOUNTER 2022-12-26 07:52 | Outpatient (REF) | payer MEDICAID, SELFPAY ==
--- NOTE | 2022-12-26 07:55 | EEG_ITS ---
This is a 16-channel EEG with an EKG lead. The patient is reported awake during the tracing. Background EEG rhythm is fluctuating between lower amplitude fast to about 10 hertz, low to medium amplitude posteriorly and lower amplitude fast anteriorly. Photic stimulation does not produce any significant abnormality. Hyperventilation is not performed. Cardiac lead does not reveal any significant abnormality. No definite sharp wave spikes or paroxysmal tendency noted. IMPRESSION: No significant abnormality noted on this EEG. MD DEMETRIA Johnson/BRIEN / [phone]
== END 2022-12-26 07:53 | disposition home or self-care (01) ==
LOC: HO.NEURO 07:52
PROVIDERS: Visit Provider Nurse Practitioner Family
DX: R41.82 Altered mental status, unspecified (principal); W19.XXXD Unspecified fall, subsequent encounter
CPT/HCPCS: 95816

== ENCOUNTER 2022-12-31 11:03 | Emergency (ER) | payer MEDICAID, SELFPAY ==
--- NOTE | ~2022-12-31 | CT_ITS ---
EXAMINATION: CT ABDOMEN AND PELVIS WITHOUT CONTRAST CLINICAL INFORMATION: Left flank pain with hematuria COMPARISON: None available. TECHNIQUE: Multidetector volumetric imaging was performed from the superior aspect of the liver through the pubic symphysis. Sagittal and coronal reformatted images were obtained on the technologist's workstation. This CT examination was performed using dose optimization techniques as appropriate, variously including the following: *Automated exposure control *Adjustment of mA and/or kV according to patient size (this includes techniques or standardized protocols for targeted exams where dose is matched to indication/reason for exam; i.e. extremities or head) *Use of iterative reconstruction technique DLP: 296 mGy-cm FINDINGS: LUNG BASES: The lung bases are clear. LIVER, GALLBLADDER, AND BILIARY TREE: The liver is normal in size, shape, and attenuation. No focal hepatic lesion or biliary ductal dilatation is present. The gallbladder is unremarkable with no evidence of radiopaque gallstones, gallbladder wall thickening, or obvious pericholecystic inflammatory changes. PANCREAS: Unremarkable. SPLEEN: Unremarkable. ADRENAL GLANDS: Unremarkable. KIDNEYS AND URETERS: The kidneys are normal in size, shape, and attenuation. No hydronephrosis, hydroureter, or calculi seen. No perinephric stranding. BLADDER: Unremarkable. GASTROINTESTINAL TRACT: There is large amount of stool seen throughout the colon consistent with significant constipation. No proximal bowel obstruction seen. The small bowel loops are normal caliber. Cecum lies in the mid to lower pelvis. Appendix is not visualized. The stomach is nondistended ABDOMINAL WALL: No significant hernia is appreciated. LYMPH NODES: Normal. VASCULAR: Unremarkable. PELVIC VISCERA: The uterus is anteverted and appears unremarkable. OSSEOUS STRUCTURES: No aggressive lytic or sclerotic process seen. CT/CT abdomen pelvis wo IV con IMPRESSION: Moderate to significant constipation. No radiopaque urolith or hydroureteronephrosis. Fleischner guidelines were followed.
[2022-12-31 11:18] VITALS: BP 124/77; PULSE 75; RESP 15; TEMP 36; O2SAT 100; BMI 21.0
--- NOTE | 2022-12-31 11:19 | ED_ITS ---
HPI - General Adult General Chief complaint: Vaginal Bleeding Stated complaint: blood in urine Time Seen by Provider: 12/31/22 17:50 Source: patient Mode of arrival: ambulatory Limitations: no limitations History of Present Illness HPI narrative: Patient is a 27-year-old female who presents emergency department for evaluation of left flank pain, dysuria, and hematuria. Urine has been foul smelling. She does endorse vaginal discharge that is clear/white, consistent with her typical discharge Onset of symptoms was 2 days ago. She trialed azo without relief in her symptoms She denies any fevers, chills, anterior abdominal pain, vomiting, constipation, diarrhea, pelvic pain, concern for sexually transmitted infections. Reports that her last menstrual period was 2 weeks ago. Denies any additional physical complaints at this time. Related Data Home Medications Medication Instructions Recorded Confirmed alprazolam 0.5 mg tablet 0.5 mg PO DAILY 11/14/22 11/14/22 aripiprazole 15 mg tablet 15 mg PO DAILY 11/14/22 11/14/22 clonidine HCl 0.1 mg tablet 0.1 mg PO BID 11/14/22 11/14/22 duloxetine 30 mg capsule,delayed 30 mg PO DAILY 11/14/22 11/14/22 release mecobalamin (vitamin B12) IM .monthly 11/14/22 Previous Rx's Medication Instructions Recorded magnesium oxide 400 mg (241.3 mg 400 mg PO BEDTIME 30 days #30 tabs 11/14/22 magnesium) tablet riboflavin (vitamin B2) 400 mg 400 mg PO DAILY 30 days #30 tabs 11/14/22 tablet sumatriptan succinate 100 mg tablet 50 - 100 mg PO .COMPLEX PRN 11/14/22 migraine headache 30 days #12 tabs Allergies Allergy/AdvReac Type Severity Reaction Status Date / Time lorazepam [LORAZEPAM] Allergy Unknown UNK Verified 11/14/22 13:50 peanut [PEANUT] Allergy Unknown SWEELING Verified 11/14/22 13:50 OF THROAT/RASH insect bites Allergy Unknown Unknown Uncoded 11/14/22 13:50 Review of Systems Review of Systems: Constitutional : No Weight loss, No Fever, No Chills ENT/Mouth :? No sore throat, No Rhinorrhea Eyes: No Swelling, No Redness Cardiovascular : No Chest Pain, No SOB, No Edema Respiratory : No Cough, No Sputum, No Wheezing Gastrointestinal : Positive Nausea, no Vomiting, no Diarrhea, no abdominal pain, No Hematochezia, No Melena Genitourinary : Positive Dysuria, No Urinary Frequency, positive Hematuria, No Urgency?positive flank pain Musculoskeletal : No joint pain, No Myalgias, No Joint Swelling Skin : No Skin Lesions, No rash Neuro : No Weakness, No Numbness, No Dizziness, No Headache Psych : No Anxiety/Panic, No Depression Yes all other systems are reviewed and are negative [facility] Past Medical History Attestation statement: The following information was validated with the patient. Source: old records reviewed Medical History Anxiety and depression PTSD (post-traumatic stress disorder) Surgical History H/O tooth extraction Family History Family History Father Alcohol abuse Drug abuse Maternal Grandmother Diabetes Paternal Grandfather Schizophrenia Social History Social History (Updated 11/14/22 @ 13:56 by Madai Santoro CMA) Alcohol intake: current Alcohol intake frequency: holidays/special occasions only Patient Tobacco Use Status: Current everyday Tobacco user Smoked in Last 30 Days: Yes Use of substances other than those prescribed or required for medical reasons: No Advance Directives: No Advance Directives Information Provided: No Patient : No Physical Exam ED Vital Signs: Vital Signs - 24 hr 12/31/22 11:18 12/31/22 18:11 Temperature 96.8 F 97.5 F Pulse Rate 75 86 Respiratory Rate 15 20 Blood Pressure 124/77 107/68 Pulse Oximetry 100 99 Oxygen Delivery Method Room Air Room Air BMI result Body Mass Index 21.0 Appearance: Alert.?Oriented to person, place and time. No acute distress.?Normal affect. Eyes: Pupils equal, round and reactive to light.? ENT: Pharynx normal.?? Neck: Normal inspection.? Neck supple.?? CVS: Heart sounds normal. Normal heart rate and rhythm.? Pulses normal.?? Respiratory: No respiratory distress.? Lung sounds clear to auscultation bilaterally?? Abdomen: Soft and non-tender. Normoactive bowel sounds. Positive left CVA tenderness? Skin: Skin warm and dry.? Normal skin color.? Extremities: No lower extremity edema.? Neuro: Moves all extremities spontaneously. Sensation intact bilaterally. No focal neuro deficits. Ambulates with normal steady gait. Course Course Course Narrative: This is an RME: Additional HPI, ROS, PE not included below will be deferred to primary provider. This is a [id number], hx of , presenting to the ER with complaints of dysuria and hematuria x 2 days. Endorsing some foul vaginal d/c. No abdominal pain, fevers, chills, or vomiting. Endorsing nausea. Has tried taking AZO without relief. VSS. Plan: UA, gc/chlamydia testing, further ER eval in the main department. Reevaluation(s) Reevaluation #1: CT of the abdomen and pelvis revealing moderate to significant constipation, no evidence of radiopaque calculi. Reviewed these findings with patient. Will treat constipation with MiraLax, given she is symptomatic of urinary tract infection, will treat with cefuroxime pending urine culture. Reviewed worsening signs and symptoms that would warrant re-evaluation the emergency department. All questions answered. Stable for discharge. Time: 21:12 Medical Decision Making Medical Decision Making MDM Narrative: Patient is a 27-year-old female who presents emergency department for evaluation of flank pain, dysuria, and hematuria. Initial notation concerning that she was having vaginal bleeding/vaginal odor, patient reports to me that this is not the case. Reports that the blood is only noticed when she is urinating, and it is the urine that is odorous. Offered to have pelvic examination however patient declines. She declines concern for sexually transmitted infection and/or any prophylaxis treatment for this. I reviewed urinalysis obtained from rapid medical examination which does reveal hematuria and pyuria. Given she is also experiencing flank pain will obtain CT of the abdomen pelvis to evaluate for calculi. testing is negative. Testing for chlamydia and gonorrhea are pending at this time. She is otherwise overall well appearing, afebrile, without tachycardia. Differential Diagnosis Differential Diagnoses: The differential diagnosis associated with the presentation includes (Urinary tract infection, ureteral calculi, hydronephrosis, sexually transmitted infection, bacterial vaginosis, PID, , ectopic ) Admission/Observation Consideration of admission/observation: Escalation of care including admission/observation considered (I considered admission for flank pain with dysuria and hematuria. See course narrative for further detail.) Lab Data MDM Lab Attestation statement: I reviewed the patient's lab results. (As noted above) Labs: Lab Results 12/31/22 12/31/22 Range/Units 11:30 11:30 Urine Color Yellow Urine Appearance Cloudy Urine pH 7.5 (5.0-9.0) Ur Specific [place] 1.010 (1.005-1.025) Urine Protein 30 (1+) H (Neg-Trace) mg/dL Urine Glucose (UA) Negative (Negative) mg/dL Urine Ketones Trace (Negative) mg/dL Urine Blood Large (3+) H (Negative) Urine Nitrite Negative (Negative) Ur Leukocyte Esterase Moderate (2+) H (Negative) Urine RBC >20 H (0-2) /HPF Urine WBC >50 H (0-5) /HPF Ur Squamous Epith Cells 0-2 (0-2) /HPF Urine Bacteria Trace (None Seen) Hyaline Casts 0-2 (0-2) /LPF Urine Test NEGATIVE (NEGATIVE) Radiology Impression Discussion of test interpretation with radiology: I have reviewed the radiologist's reading. Radiologist Impression: CT/CT abdomen pelvis wo IV con IMPRESSION: Moderate to significant constipation. ? No radiopaque urolith or hydroureteronephrosis. Discharge Plan Discharge Clinical Impression: Urinary tract infection, Constipation Patient Disposition: Home, Self-Care Instructions: Constipation (ED), Urinary Tract Infection in Women (DC), High Fiber Diet (ED) Additional Instructions: As sent a prescription for antibiotic to your pharmacy for treatment of urinary tract infection. Additionally, I have sent a prescription for MiraLax for treatment of constipation. Please stop taking the MiraLax if you develop diarrhea. You may return back to emergency department any new or worsening symptoms or concerns. Please follow-up with your primary care provider within 3 days. Prescriptions: No Action alprazolam 0.5 mg tablet 0.5 mg PO DAILY aripiprazole 15 mg tablet 15 mg PO DAILY clonidine HCl 0.1 mg tablet 0.1 mg PO BID Rx Instructions: 0.2 BID PRN duloxetine 30 mg capsule,delayed release(DR/EC) 30 mg PO DAILY mecobalamin (vitamin B12) IM .monthly sumatriptan succinate 100 mg tablet 50 - 100 mg PO .COMPLEX PRN (Reason: migraine headache) 30 Days Qty: 12 6RF Rx Instructions: 50 - 100 mg orally at onset of headache, may repeat in 2 hrs PRN; max 2 tabs per day or 4 tabs/week (may take with Ibuprofen) magnesium oxide 400 mg (241.3 mg magnesium) tablet 400 mg PO BEDTIME 30 Days Qty: 30 6RF Rx Instructions: may hold for loose stools riboflavin (vitamin B2) 400 mg tablet 400 mg PO DAILY 30 Days Qty: 30 6RF
[2022-12-31 11:39] LABS: Appearance Urine Cloudy; Color Urine Yellow; Glucose Urine UA Negative (Negative); Leukocyte Esterase Urine Moderate (2+) (Negative); Nitrite Urine Negative (Negative); PH 7.5 (5.0-9.0); UMIC TRIGGER UACC YES; Urine Blood Large (3+) (Negative); Urine Ketones Trace mg/dL (Negative); Urine Protein 30 (1+) mg/dL (Neg-Trace)
[2022-12-31 11:40] LABS: Bacteria Urine Trace (None Seen); Hyaline Casts Urine 0-2 /LPF (0-2); RBC Urine >20 /HPF (0-2); Squamous Epithelial Cell Urine 0-2 /HPF (0-2); UACC Culture Trigger YES; UPreg QC Valid YES; Urine Pregnancy NEGATIVE (NEGATIVE); WBC Urine >50 /HPF (0-5)
[2022-12-31 18:11] VITALS: BP 107/68; PULSE 86; RESP 20; TEMP 36.4; O2SAT 99
[2022-12-31 22:00] VITALS: BP 107/72; PULSE 75; RESP 20; TEMP 36.7; O2SAT 98
[2022-12-31] MEDS: polyethylene glycoL 3350 17 GM POWD.PACK PO (22:08)
[2022-12-31] MEDS: cephALEXin 500 MG CAPSULE 250 MG PO (22:08)
[2022-12-31] MEDS: Acetaminophen 325 MG TABLET 975 MG PO (22:09)
[2023-01-01 14:08] LABS: CT PCR NOT DETECTED (Not Detect.); NG PCR NOT DETECTED (Not Detect.)
== END 2022-12-31 22:13 | disposition home or self-care (01) ==
PROVIDERS: Physician Assistant Medical; Emergency Provider Emergency Medicine Emergency Medical Services
DX: N39.0 Urinary tract infection, site not specified (principal); R10.2 Pelvic and perineal pain; K59.00 Constipation, unspecified; Z79.899 Other long term (current) drug therapy
CPT/HCPCS: 0353U; 74176; 81001; 81025; 87086; 99284

== ENCOUNTER 2023-02-27 14:58 | Outpatient (AMB) | payer OTHER, SELFPAY ==
--- NOTE | 2023-02-27 15:01 | A.OFFVIS_ITS ---
Intake Vital Signs 02/27/23 15:02 Height 5 ft 2 in Weight 115 lb 8 oz BMI 21.1 BP 108/72 Blood Pressure Location Rt brachial Position Sitting Intake Visit Reasons: 3M F/U Migraines -Cofirmed Intake Note: Patient presents for 3 month follow up migraines. patient states the medications I was given to take them before a headache wasn't working for me and now Im so I dont know what else to take. Allergies lorazepam [LORAZEPAM] Allergy (Unknown, Verified 02/27/23 15:06) UNK peanut [PEANUT] Allergy (Unknown, Verified 02/27/23 15:06) SWEELING OF THROAT/RASH insect bites Allergy (Unknown, Uncoded 02/27/23 15:06) Unknown Medication List - Last Reconciled 02/27/23 by GE Roa alprazolam 0.5 mg PO DAILY aripiprazole 15 mg PO DAILY cefuroxime axetil 250 mg PO BID clonidine HCl 0.1 mg PO BID duloxetine 30 mg PO DAILY magnesium oxide 400 mg PO BEDTIME 30 days mecobalamin (vitamin B12) IM .monthly metoclopramide HCl (Reglan) 5 - 10 mg (1 - 2 x 5 mg) PO Q4-6H PRN 30 days polyethylene glycol 3350 (Miralax) 17 grams PO DAILY riboflavin (vitamin B2) 400 mg PO DAILY 30 days rizatriptan 5 - 10 mg (0.5 - 1 x 10 mg) PO Q2H PRN 21 days HPI HPI Comments History of Present Illness Details 27-yr-old female presents for f/u visit. Pt reports she is 6-7 weeks . She is f/b [facility] [employer]. She has stopped all of her meidcations, including her psychiatric meds. She states that her migraines are lasting longer- now up to 2 days. In the past month, she is having 1-2 migraine attacks per week. She has stopped the Sumatriptan, since she learned she was she stopped. But prior she could only tolerate Sumatriptan 50mg, but this was not effective. [facility] Medical History Anxiety and depression PTSD (post-traumatic stress disorder) Surgical History H/O tooth extraction Family History Father Alcohol abuse Drug abuse Maternal Grandmother Diabetes Paternal Grandfather Schizophrenia Social History Alcohol intake: current Alcohol intake frequency: holidays/special occasions only Patient Tobacco Use Status: Current everyday Tobacco user Review of Systems Const All systems reviewed & are unremarkable except as noted in HPI and below Physical Exam Vital Signs: Last Vital Signs BP 108/72 02/27/23 15:02 BMI result Body Mass Index 21.1 Const General: cooperative and no acute distress Orientation/consciousness: patient oriented x3 HEENT Head: Yes normocephalic Resp Effort & Inspection: normal respiratory effort and able to speak in complete sentences Neuro General: patient oriented x3, gait normal and CN's II-XI intact bilaterally Cognition (Neuro): normal cognition Motor exam (neuro): 5/5 motor strength present throughout Psych Appearance: grossly normal Mental Status: mental status grossly normal Speech and movement: Normal speech and movement present Affect: normal affect Attitude: cooperative Thought process: Normal thought process present Thought content: Normal thought content present Insight: Good insight present (Psych) Judgement: Good judgement present (Psych) Assessment & Plan Assessment & Plan (1) Migraine: Code(s): G43.909 - Migraine, unspecified, not intractable, without status migrainosus (2) Tremor: Code(s): R25.1 - Tremor, unspecified (3) Diplopia: Code(s): H53.2 - Diplopia (4) : Code(s): Z34.90 - Encounter for supervision of normal , unspecified, unspecified trimester Plan EEG- normal Monitor tremor- ? exagerated physiological tremor, ? extrapyramidal s/s r/t h/o neuroleptic tx. Monitor eye movements, diplopia- ? migraine, ? vertigo Monitor stuttering- ? d/t migraine. ? ? For acute headache treatment: Trial Rizatriptan prn- pt to discuss w/ her OB. Reglan prn N/V- advsied to use sparingly. May use Tylenol prn. Previous acute migraine medication trials: Excedrin- ineffective. Sumatriptan- 50mg- ineffective, 100mg not tolerated Acute migraine medication contraindications: None at this time ? For headache prevention medication: Hold Riboflavin 400mg qam- d/t May continue Magnesium 400mg qhs Previous migraine prevention medication trials: None Migraine prevention medication contraindications: I would be wary of trialing T Magdy or topiramate w/o discussing w/ pt's psychiatrist first and pt is currently ? Information given on Neriv[employer] neuromodulation devices. ? Pt to follow-up in 3 months or sooner prn. Medications: New metoclopramide HCl (Reglan) 5 - 10 mg (1 - 2 x 5 mg) PO Q4-6H PRN 60 tabs 1RF nausea and vomiting 30 days rizatriptan max 2 tabs per day or 4 tabs per week 5 - 10 mg (0.5 - 1 x 10 mg) PO Q2H PRN 12 tabs 3RF migraine headache 21 days Discontinued sumatriptan succinate Discontinued Reason: Doctor's Order (0.5 - 1 x 100 mg) 50 - 100 mg orally at onset of headache, may repeat in 2 hrs PRN; max 2 tabs per day or 4 tabs/week (may take with Ibuprofen) 30 days 12 tabs 6RF migraine headache Coding Level of Care Code Est Pt Level 4 (27791) Diagnoses Migraine G43.909 Tremor R25.1 Diplopia H53.2 Z34.90
[2023-02-27 15:02] VITALS: BP 108/72; BMI 21.1
== END 2023-02-27 15:37 | disposition home or self-care (01) ==
PROVIDERS: Visit Provider Nurse Practitioner Family
DX: G43.909 Migraine, unspecified, not intractable, without status migrainosus (principal); R25.1 Tremor, unspecified; H53.2 Diplopia; Z34.90 Encounter for supervision of normal pregnancy, unspecified, unspecified trimester
CPT/HCPCS: 99214

== ENCOUNTER → 2023-02-27 14:58 | Outpatient (BNVA) | payer OTHER, SELFPAY | PROVIDERS: Visit Provider Nurse Practitioner Family | DX: O99.351 Diseases of the nervous system complicating pregnancy, first trimester (principal); G43.909 Migraine, unspecified, not intractable, without status migrainosus; R25.1 Tremor, unspecified; H53.2 Diplopia; Z3A.01 Less than 8 weeks gestation of pregnancy | CPT/HCPCS: 99212 ==

== ENCOUNTER 2023-08-27 08:33 | Outpatient (AMB) | payer OTHER, SELFPAY ==
[2023-08-27 08:40] VITALS: PULSE 80; O2SAT 98; BMI 23.6
--- NOTE | 2023-08-27 08:40 | MHC.OFFVIS ---
Intake Vital Signs 08/27/23 08:40 Height 5 ft 2 in Weight 129 lb BMI 23.6 Pulse 80 Pulse Source Pulse Oximeter Pulse Oximetry (%) 98 Oxygen Delivery Method Room Air Intake Visit Reasons: 3 mo f/u - Migraines-Conf Intake Note: Patient presents for 3 month follow up migraines Allergies lorazepam [LORAZEPAM] Allergy (Unknown, Verified 08/27/23 08:42) UNK peanut [PEANUT] Allergy (Unknown, Verified 08/27/23 08:42) SWEELING OF THROAT/RASH insect bites Allergy (Unknown, Uncoded 08/27/23 08:42) Unknown Medication List - Last Reconciled 08/27/23 by GE Roa alprazolam 0.5 mg PO DAILY aripiprazole 15 mg PO DAILY cefuroxime axetil 250 mg PO BID clonidine HCl 0.1 mg PO BID duloxetine 30 mg PO DAILY magnesium oxide 400 mg PO BEDTIME 30 days mecobalamin (vitamin B12) IM .monthly metoclopramide HCl (Reglan) 5 - 10 mg (1 - 2 x 5 mg) PO Q4-6H PRN 30 days polyethylene glycol 3350 (Miralax) 17 grams PO DAILY vit [id number] 28 mg iron- 800 mcg (Classic ) tabs PO riboflavin (vitamin B2) 400 mg PO DAILY 30 days rizatriptan 5 - 10 mg (0.5 - 1 x 10 mg) PO Q2H PRN 21 days zolmitriptan take 1 tab at onset of headache; if no relief, may repeat 1 tab after at least 2 hrs; max = 2 tabs/24 hrs PO 30 days HPI HPI Comments History of Present Illness Details 28-yr-old female presents for f/u visit. Pt denies any significant interval medical changes. Pt is 32 weeks . She states the baby is smaller than expected for gestational age recent US showed placenta detachment- so she will have a weekly US and stress test. She is due October 19- may need to be induced early. The headaches come and go. Having about 2 headache days per week. Uisng Tylenol prn. Rizatriptan was not effective. Nerivio helps some times. She is working 12 hr days- 5am-5pm Mon-Fri. Baseline headache characteristics: Prodrome symptoms of right eye pressure, mid-frontal pressure, photophobia Aura- May have blurry vision Severe Holocranial but more right sided- throbbing a/w photophobia, eye pain, phonophobia, osmophobia, allodynia, nausea, vomiting, brain fig, fatigue, worsening eye/lip tremor and stuttering (she has this other times as well), watery eyes. [facility] Medical History Anxiety and depression PTSD (post-traumatic stress disorder) Surgical History H/O tooth extraction Family History Father Alcohol abuse Drug abuse Maternal Grandmother Diabetes Paternal Grandfather Schizophrenia Social History Alcohol intake: current Alcohol intake frequency: holidays/special occasions only Patient Tobacco Use Status: Current everyday Tobacco user Physical Exam Vital Signs: Last Vital Signs Pulse 80 08/27/23 08:40 Pulse Ox 98 08/27/23 08:40 Oxygen Delivery Method Room Air 08/27/23 08:40 BMI result Body Mass Index 23.6 Const General: cooperative and no acute distress Orientation/consciousness: patient oriented x3 Resp Effort & Inspection: normal respiratory effort and able to speak in complete sentences Neuro General: patient oriented x3 Cranial nerves: Yes CN's II-XII intact bilaterally Cognition (Neuro): normal cognition Psych Appearance: grossly normal Mental Status: mental status grossly normal Speech and movement: Normal speech and movement present Affect: normal affect Attitude: cooperative Assessment & Plan Assessment & Plan (1) Migraine: Code(s): G43.909 - Migraine, unspecified, not intractable, without status migrainosus (2) : Code(s): Z34.90 - Encounter for supervision of normal , unspecified, unspecified trimester Plan EEG- normal Monitor tremor- ? exaggerated physiological tremor, ? extrapyramidal s/s r/t h/o neuroleptic tx. Monitor eye movements, diplopia- ? migraine, ? vertigo Monitor stuttering- ? d/t migraine. Reviewed red flag headcahe s/s in to report/seek urgent medical attention for. For acute headache treatment: Stop Rizatriptan- ineffective. Trial Zolmitriptan 5mg prn. Reglan prn migarine or N/V- advised to use sparingly. May use Tylenol prn. Continue Nerivio neuromodulation stimulation- 45 min stimulation qd prn. Previous acute migraine medication trials: Excedrin- ineffective. Sumatriptan- 50mg- ineffective, 100mg not tolerated. Rizatriptan 10mg- ineffective. Acute migraine medication contraindications: Eleltriptan- cross-reaction w/ peanut allergy. ? For headache prevention medication: Hold Riboflavin 400mg qam- d/t May continue Magnesium 400mg qhs Previous migraine prevention medication trials: None Migraine prevention medication contraindications: I would be wary of trialing TCAs or topiramate w/o discussing w/ pt's psychiatrist first and pt is currently ? ? Pt to follow-up in 4 months or sooner prn. Medications: New zolmitriptan take 1 tab at onset of headache; if no relief, may repeat 1 tab after at least 2 hrs; max = 2 tabs/24 hrs PO 12 tabs 3RF 30 days Refilled metoclopramide HCl (Reglan) 5 - 10 mg (1 - 2 x 5 mg) PO Q4-6H PRN 60 tabs 1RF migraine or nausea and vomiting 30 days Coding Level of Care Code Est Pt Level 4 (59916) Diagnoses Migraine G43.909 Z34.90
== END 2023-08-27 09:42 | disposition home or self-care (01) ==
PROVIDERS: Visit Provider Nurse Practitioner Family
DX: G43.909 Migraine, unspecified, not intractable, without status migrainosus (principal); Z34.90 Encounter for supervision of normal pregnancy, unspecified, unspecified trimester
CPT/HCPCS: 99214

== ENCOUNTER → 2023-08-27 08:33 | Outpatient (BNVA) | payer OTHER, SELFPAY | PROVIDERS: Visit Provider Nurse Practitioner Family | DX: O26.893 Other specified pregnancy related conditions, third trimester (principal); G43.909 Migraine, unspecified, not intractable, without status migrainosus; Z3A.32 32 weeks gestation of pregnancy | CPT/HCPCS: 99212 ==